=== PATIENT | female | born 1990 | race Two or more races ===

== ENCOUNTER 2019-12-08 00:55 | Emergency (ER) | payer BC ==
[~2019-12-08] VITALS: Ht 162.6 cm; Wt 126.8 kg
[2019-12-08 01:53] VITALS: BP 162/75
[2019-12-08] MEDS ORDERED: METOCLOPRAMIDE HCL 10 MG/2 ML VIAL. IVP ONE (02:30)
[2019-12-08] MEDS ORDERED: diphenhydrAMINE 50 MG/ML VIAL IVP ONE (02:30)
[2019-12-08] MEDS ORDERED: PROCHLORPERAZINE 10 MG/2 ML VIAL. IV ONE (02:30)
[2019-12-08] MEDS ORDERED: IV NORMAL SALINE 1000ML BAG 1,000 ML IV ONE (02:30)
[2019-12-08] MEDS ORDERED: PROC10TA57 PO (03:03)
--- NOTE | 2019-12-08 03:27 | PHYS DOC ---
Past Medical History Past Medical History: No Pertinent History Past Surgical History: Cholecystectomy Smoking Status: Never Smoker Alcohol Use: None Adult General Chief Complaint Chief Complaint: UPPER EXTREMITY PAIN HPI HPI Patient is a 29 year old female with history of migraines who presents with typical migraine headache starting earlier this evening. Headache is occipital radiates to forehead and is described as throbbing associated with nausea. S ymptoms began several hours prior to ED arrival. Patient also reports paresthesias of left cheek, left arm and twitching of right cheek. Paresthesias are new. Also reports mild posterior neck pain worse with palpation. No traumas, repetitive strain injuries. No extremity weakness or loss of sensation. No recent illnesses this is not the worst headache of the patient's life. [] Review of Systems Review of Systems Review of symptoms as per HPI. All other review of symptoms are negative. All other systems were reviewed and found to be within normal limits, except as documented in this note. Current Medications Current Medications Current Medications Medications (Trade) Dose Ordered Sig/Lamar Start Time Stop Time Status Last Admin Dose Admin Diphenhydramine HCl (Benadryl) 50 mg 1X ONCE 12/08/19 02:30 12/08/19 02:31 DC 12/08/19 02:21 50 MG Metoclopramide HCl (Reglan Vial) 10 mg 1X ONCE 12/08/19 02:30 12/08/19 02:31 DC 12/08/19 02:21 10 MG Prochlorperazine Edisylate (Compazine) 10 mg 1X ONCE 12/08/19 02:30 12/08/19 02:31 DC 12/08/19 02:21 10 MG Sodium Chloride 1,000 ml @ 1,000 mls/hr 1X ONCE 12/08/19 02:30 12/08/19 03:22 DC 12/08/19 02:22 1,000 MLS/HR Allergies Allergies Allergies Coded Allergies Type Severity Reaction Last Updated Verified No Known Drug Allergies 12/08/19 No Physical Exam Physical Exam Constitutional: Well developed, well nourished, no acute distress, non-toxic appearance. [] HENT: Normocephalic, atraumatic, bilateral external ears normal,nose normal. [] Eyes: PERRLA, EOMI, conjunctiva normal, no discharge. [] Neck: Normal range of motion, no midline tenderness, supple, no stridor. [] Cardiovascular:Heart rate regular rhythm, no murmur [] Lungs & Thorax: Bilateral breath sounds clear to auscultation [] Abdomen: Bowel sounds normal, soft, no tenderness. [] Skin: Warm, dry, no erythema, no rash. [] Back: No tenderness, no CVA tenderness. [] Extremities: No tenderness, no cyanosis, no clubbing, ROM intact, no edema. [] Neurologic: Alert and oriented X 3, cranial nerves II through XII grossly intact, normal motor function, normal sensory function, no focal deficits noted. [] Psychologic: Affect normal, judgement normal, mood normal. [] Current Patient Data Vital Signs Vital Signs Date Time Temp Pulse Resp B/P (MAP) Pulse Ox O2 Delivery O2 Flow Rate FiO2 12/08/19 01:53 98.0 73 20 162/75 (104) 96 Room Air 98.0 EKG EKG [] Radiology/Procedures Radiology/Procedures [] Course & Med Decision Making Course & Med Decision Making Pertinent Labs and Imaging studies reviewed. (See chart for details) [Symptoms fully resolved with treatment in the ED. Symptoms most consistent with complex migraine. Recommend PCP follow-up for further management.] Dragon Disclaimer Dragon Disclaimer This electronic medical record was generated, in whole or in part, using a voice recognition dictation system. Departure Departure Impression: Primary Impression: Migraine Disposition: 01 HOME, SELF-CARE Condition: GOOD Patient Instructions: Migraine Headache, [id number] Additional Instructions: Please go home and rest. Take Compazine and Excedrin Migraine if headache recurs. Follow-up with your PCP for reevaluation. Return to the ED if new or worsening symptoms. Scripts Prochlorperazine Maleate (Compazine) 10 Mg Tablet 10 MG PO Q8HRS for NAUSEA MDD 3, #10 TAB Prov: MISTI DALTON DO 12/08/19 MISTI DALTON DO Dec 08, 2019 03:27
== END 2019-12-08 03:21 | disposition home or self-care (01) ==
LOC: ER 00:55
DX: G43.909 Migraine, unspecified, not intractable, without status migrainosus (principal); M54.2 Cervicalgia; R11.0 Nausea; Z90.49 Acquired absence of other specified parts of digestive tract
CPT/HCPCS: 96374; 96375; 99284; J0780; J1200; J2765; J7030